=== PATIENT | male | born 1955 | race Hispanic/Latino ===

== ENCOUNTER 2017-01-09 13:22 | Outpatient (CLI) | payer BC ==
[~2017-01-09 13:22] MED LIST: PROVENTIL IH ONE
[2017-01-09 13:57] LABS: Hematocrit 55.3 % (35.5-45.6); Hemoglobin 18.4 gm/dl (11.8-15.2); Mean Corpuscular HGB Conc 33 % (32-34); Mean Corpuscular Hemoglobin 30 pg (28-32); Mean Corpuscular Volume 91 fl (84-94); Platelet Count 172 K/mm3 (140-440); Red Blood Count 6.06 M/mm3 (3.65-5.03); White Blood Count 12.7 K/mm3 (4.5-11.0)
[2017-01-09 14:14] LABS: Alanine Aminotransferase 22 units/L (7-56); Albumin 4.1 g/dL (3.9-5); Albumin/Globulin Ratio 1.4 %; Alkaline Phosphatase 59 units/L (35-129); Anion Gap 17 mmol/L; BUN/Creatinine Ratio 16.66; Blood Urea Nitrogen 15 mg/dL (9-20); Calcium 8.9 mg/dL (8.4-10.2); Carbon Dioxide 29 mmol/L (22-30); Chloride 96.9 mmol/L (98-107); Cholesterol 159 mg/dL (50-199); Glucose 105 mg/dL (75-100); HDL Cholesterol 72 mg/dL (40-59); LDL Cholesterol,Direct 71 mg/dL (50-130); Potassium 4.5 mmol/L (3.6-5.0); Sodium 138 mmol/L (137-145); Total Protein 7.1 g/dL (6.3-8.2); Triglycerides 82 mg/dL (2-149)
[2017-01-09 15:55] LABS: ISTAT Base Excess 4; ISTAT DEVICE 0; ISTAT HCO3 29.5; ISTAT PCO2 50.6 (35-45); ISTAT PH 7.373 (7.35-7.45); ISTAT PO2 44 (80-105); ISTAT SO2 78; ISTAT TCO2 31
--- NOTE | 2017-01-14 04:20 | Pulmonary Function Test ---
SPIROMETRY: FVC 2.02 liters, which is 42% of predicted. FEV1 is 0.89 liters, which is 24% of predicted. FEV1/FVC ratio is 44. FLOW VOLUME LOOP: FEF 25-75% is 0.30 liters per second, which is 10% of predicted and MVV is 32%, which is low. LUNG VOLUMES: TLC is 6.29 liters, which is 89% of predicted and ERV is 0.42 is 29% of predicted. RV is 4.27, which is 189% of predicted and DLCO is 34% of predicted. Airway resistance is high. IMPRESSION: 1. Severe obstructive ventilatory impairment as evidenced by decrease in FEV1 and also decrease in the FEV1/FVC: 2. Decrease in DLCO. 3. Post-bronchodilator, significant improvement in FVC, FEV1 and FEF 25-75%. JOB# [id number] DONOVAN/CHARANJIT
== END 2017-01-09 13:23 | disposition home or self-care (01) ==
LOC: PF 13:22
PROVIDERS: ATTEND Internal Medicine
DX: J44.9 Chronic obstructive pulmonary disease, unspecified (principal)
CPT/HCPCS: 36415; 36600; 80053; 80061; 82803; 84436; 84443; 85027; 94060; 94640; 94726; 94729